=== PATIENT | female | born 1955 | race Caucasian/White ===

== ENCOUNTER 2017-03-04 09:21 | Emergency (ER) | payer SELFPAY ==
[~2017-03-04] VITALS: Ht 167.6 cm; Wt 68.0 kg
[2017-03-04 09:28] VITALS: BP 141/63; PULSE 99; RESP 16; TEMP 97.5; O2SAT 99
[2017-03-04] MEDS ORDERED: PAXI30TA7 PO (09:54)
[2017-03-04] MEDS ORDERED: CLON2TAB PO (09:54)
[2017-03-04] MEDS ORDERED: BACT800T5 PO (09:54)
--- NOTE | 2017-03-04 11:02 | PD ---
HPI Chief Complaint: Abnormal Results Time Seen by Provider: 10:47 Travel History International Travel<30 days: No Contact w/Intl Traveler<30days: No Traveled to known affect area: No History of Present Illness HPI 61-year-old female presents to the emergency room for evaluation of generalized weakness and malaise for the past few months. Patient is a nurse in [employer]. Patient states after coming to work today she felt especially weak, shaky in her legs, and pale. Her coworkers took her blood sugar and was found to be 174. She checked into the emergency room and while waiting, her symptoms resolved. Patient states she now feels well enough to drive so she decided to follow up with her primary care physician and made an appointment for tomorrow. Patient declined testing here stating she would prefer to follow up with her primary care physician so he can do a broader range of tests. She is only on medications for anxiety and depression. She also reports 7 pound unintentional weight loss. States she has been feeling unwell for a while and noticed something wrong. Denies chest pain, fever, chills, or any other symptoms other than weight loss and fatigue. PFSH Past Medical History Anxiety: Yes Tetanus Vaccination: Unknown ?: Not Past Surgical History Cholecystectomy: Yes Social History Alcohol Use: Yes (SOCIAL) Tobacco Use: No Substance Use: No Allergies-Medications (Allergen,Severity, Reaction): Coded Allergies: No Known Allergies (Verified Allergy, Unknown, 03/04/17) Reported Meds & Prescriptions Reported Meds & Active Scripts Active Reported Bactrim DS (Sulfamethoxazole-Trimethoprim) 800-160 Mg Tab 1 Tab PO BID Paxil (Paroxetine HCl) 30 Mg Tab 40 Mg PO DAILY Clonazepam 2 Mg Tab 2 Mg PO BID PRN Review of Systems Except as stated in HPI: all other systems reviewed are Neg Physical Exam Narrative GENERAL: Well-nourished, well-developed female in no acute distress. Afebrile. Ambulatory. SKIN: Focused skin assessment warm/dry. Mild erythematous macules to lateral mouth. HEAD: Normocephalic. EYES: No scleral icterus. No injection or drainage. NECK: Supple, trachea midline. No JVD or lymphadenopathy. CARDIOVASCULAR: Regular rate and rhythm without murmurs, gallops, or rubs. RESPIRATORY: Breath sounds equal bilaterally. No accessory muscle use. PSYCHIATRIC: No delusional thought processes. No hallucinations. NEUROLOGICAL: Awake and alert. Cranial nerves II through XII intact. Motor and sensory grossly within normal limits. Five out of 5 muscle strength in all muscle groups. Normal speech. Data Data Last Documented VS Vital Signs Date Time Temp Pulse Resp B/P (MAP) Pulse Ox O2 Delivery O2 Flow Rate FiO2 03/04/17 11:12 03/04/17 09:54 58 19 100 Room Air 03/04/17 09:28 97.5 Orders Orders Ed Discharge Order (03/04/17 11:02) MDM Medical Decision Making Medical Screen Exam Complete: Yes Emergency Medical Condition: Yes Medical Record Reviewed: Yes Differential Diagnosis Generalized weakness, anemia, electrolyte abnormality, UTI, blood disorder, hypoglycemia Narrative Course 61-year-old female presents to the emergency room for evaluation of generalized weakness. Patient is a nurse at the [employer]. She went to work today and had a near syncopal episode. States she has been feeling weak over the past several months. While waiting to be evaluated in the emergency room, her symptoms subsided and she made an appointment with her primary care physician for tomorrow. Patient states she would prefer to have workup done as an outpatient so he can be more comprehensive. Declined testing here. She denies chest pain , shortness of breath at this time. Physical exam is unremarkable. Vital signs stable. She is stable for outpatient follow-up. This is preferred as she can have more specific testing that the emergency room does not provide. She has close follow-up and will return for any worsening symptoms. She understands and agrees to plan. Diagnosis Primary Impression: Generalized weakness Additional Instructions: Rest and drink fluids. Eat a complete nutritious breakfast every morning. Follow-up with a primary care physician. Return to the emergency room for worsening symptoms. Disposition: 01 DISCHARGE HOME Condition: Stable Holli Romeo Mar 04, 2017 11:02
== END 2017-03-04 11:13 | disposition home or self-care (01) ==
LOC: NEPD 09:21
DX: R53.1 Weakness (principal); R55 Syncope and collapse; R53.81 Other malaise; R63.4 Abnormal weight loss; R53.83 Other fatigue; Z86.59 Personal history of other mental and behavioral disorders
CPT/HCPCS: 99281